=== PATIENT | male | born 1965 | race Caucasian/White ===

== ENCOUNTER 2022-11-11 23:47 | Emergency (ER) | payer OTHER ==
[~2022-11-11] VITALS: Ht 165.1 cm; Wt 98.4 kg
--- NOTE | 2022-11-12 00:10 | NUR ---
Patient ambulated to room #2 with family from home with c/o abd pain with nausea. patient is alert and oriented x4, no s/s of any distress noted, informed of plan of care, awaiting MD exam. side rails up will monitor. b/p is elevated will inform MD.
[2022-11-12] MEDS ORDERED: ONDANSETRON 4 MG/2 ML VIAL IV ONE (00:45)
[2022-11-12] MEDS ORDERED: MORPHINE SULFATE 2 MG/1 ML DISP.SYRIN IV ONE (00:45)
[2022-11-12] MEDS ORDERED: IV NORMAL SALINE 1000 ML BAG IV ONE (00:45)
--- NOTE | 2022-11-12 00:50 | NUR ---
Bedside EKG done for MD review, #20g established in left ac area, blood collected and sent to lab. MD informed of elevated b/p.
[2022-11-12 00:51] LABS: HEMATOCRIT 29.8 % (36.7-47.1); MEAN CORPUSCULAR HEMOGLOBIN 24.2 uug (23.8-33.4); MEAN CORPUSCULAR VOLUME 75.6 fL (73.0-96.2); PLATELET COUNT (AUTO) 288 K/uL (152-348)
[2022-11-12 00:52] LABS: *BILIRUBIN,URIN NEGATIVE (NEGATIVE); *BLOOD, URINE NEGATIVE (NEGATIVE); *CLARITY,URINE SLIGHTLY CLOUDY (CLEAR); *COLOR,URINE YELLOW (YELLOW); *KETONES,URINE TRACE (NEGATIVE); *UROBILINOGEN,URINE 0.2 E.U./dl (NORMAL); LEUKOCYTE ESTERASE ,URINE NEGATIVE (NEGATIVE); NITRITE, URINE NEGATIVE (NEGATIVE); PH,URINE 8.5 (5.0-8.0); UGLUCOSE NEGATIVE (NEGATIVE)
[2022-11-12] MEDS ORDERED: MORPHINE SULFATE 4 MG/1 ML DISP.SYRIN ONE (00:53)
[2022-11-12] MEDS ORDERED: ONDANSETRON 4 MG/2 ML VIAL ONE (00:53)
[2022-11-12] MEDS ORDERED: MAG HYDROX/AL HYDROX/SIMETH 30 ML LIQUID UDC PO ONE (01:00)
[2022-11-12] MEDS ORDERED: LIDOCAINE VISCUS 2% 15 ML UDC MM ONE (01:00)
[2022-11-12] MEDS ORDERED: LIDOCAINE VISCUS 2% 15 ML UDC ONE (01:02)
[2022-11-12] MEDS ORDERED: MAG HYDROX/AL HYDROX/SIMETH 30 ML LIQUID UDC ONE (01:02)
[2022-11-12 01:07] LABS: CREATININE 0.8 mg/dL (0.6-1.3); POTASSIUM 3.9 mmol/L (3.5-5.1)
--- NOTE | 2022-11-12 01:07 | NUR ---
patient medicated as per order, states pain is better s/p the morphine .IVF infusing well as per order. repositioned for comfort, family remains at bedside.
[2022-11-12 01:18] LABS: BILIRUBIN,TOTAL 0.9 mg/dL (0.2-1.0); TOTAL PROTEIN, SERUM 7.8 g/dL (6.4-8.2)
[2022-11-12 01:29] LABS: BACTERIA,URINE NONE SEEN /HPF (NONE SEEN); RBC,URINE NONE SEEN /HPF (0-3); SQUAMOUS EPITHELIAL CELL,UR FEW /HPF (NONE SEEN); WBC,URINE NONE SEEN /HPF (0-3)
[2022-11-12 01:34] LABS: URINE AMORPHOUS PHOSPHATES MANY /HPF
[2022-11-12 01:35] LABS: LIPASE 121 U/L (73-393)
[2022-11-12] MEDS ORDERED: IOHEXOL 300MG/ML 100 ML INFUS..BTL ONE (02:09)
[2022-11-12] MEDS ORDERED: SWABABLE VALVE TRANSFER SET EA MC ONE (02:09)
[2022-11-12] MEDS ORDERED: IV NORMAL SALINE 250 ML IV ONE (02:10)
--- NOTE | 2022-11-12 02:24 | NUR ---
Patient consented for CT at this time tech is here to transport, patient remains stable.
--- NOTE | 2022-11-12 03:39 | NUR ---
sitting up at bedside awaiting CT results, no c/o at this time. 152/80-92-20-97%, will continue to monitor.
[2022-11-12] MEDS ORDERED: KETOROLAC TROMETHAMINE 15 MG INJ IVP ONE (04:00)
[2022-11-12] MEDS ORDERED: IV NORMAL SALINE 500 ML BAG IV ONE (04:00)
[2022-11-12] MEDS ORDERED: KETOROLAC TROMETHAMINE 15 MG INJ ONE (04:07)
--- NOTE | 2022-11-12 05:19 | NUR ---
IVF complete, resting without c/o, given miley at this time.139/75-96-20-97% will continue to monitor.
--- NOTE | 2022-11-12 05:30 | NUR ---
Dr. Khalil speaking with Dr. Rodriguez for surgery consult.
--- NOTE | 2022-11-12 05:41 | NUR ---
Patient tolerated sandwhich well, no abd pain s/p eating. MD at bedside talking with patient, aware will be waiting in ER for surgeon this morning.
[2022-11-12] MEDS ORDERED: CEFTRIAXONE 1 G in IV DEXTROSE 5% 50 ML IV ONE (06:15)
[2022-11-12] MEDS ORDERED: METRONIDAZOLE 500 MG/NS 100 ML PIGGYBACK IV ONE (06:15)
[2022-11-12] MEDS ORDERED: CEFTRIAXONE /D5W 50ML IVPB **ER PYXIS IV ONE (07:02)
[2022-11-12] MEDS ORDERED: METRONIDAZOLE 500 MG/NS 100ML 100 ML IV ONE (07:03)
--- NOTE | 2022-11-12 08:38 | NUR ---
Patient does not wish to proceed with medical care recommended by Dr. Carlson. Patient given information related to possible complications, up to and including , which could occur as a result of leaving the hospital at this time. Patient verbalizes understanding of risks involved due to leaving against medical advice. Patient has signed AMA form.
== END 2022-11-12 09:39 | disposition left against medical advice (07) ==
LOC: ER 11-12 00:06
DX: K81.9 Cholecystitis, unspecified (principal); J98.11 Atelectasis; I10 Essential (primary) hypertension
CPT/HCPCS: 99285; 74177; 96365; 96375 ×2; 76705; 80053; 81001; 83690; 85025; 84484; 36415; 93005; 83605; J0696; J1885; J3490; J2405; Q9967; J2270; J7040 ×2

== ENCOUNTER 2022-12-08 22:57 | Emergency (ER) | payer OTHER ==
[~2022-12-08] VITALS: Ht 165.1 cm; Wt 98.9 kg
[2022-12-09] MEDS ORDERED: CARV3.122 PO (00:09)
[2022-12-09] MEDS ORDERED: HYDR-3980 PO (00:50)
[2022-12-09] MEDS ORDERED: HYDROMORPHONE 1 MG/1 ML DISP.SYRIN IM ONE (01:00)
[2022-12-09] MEDS ORDERED: KETOROLAC TROMETHAMINE 60 MG INJ IM ONE ×2 (01:00→01:03)
[2022-12-09] MEDS ORDERED: ONDANSETRON HCL 4 MG TABLET PO ONE (01:00)
[2022-12-09] MEDS ORDERED: OXYCODONE/APAP 5-325 MG TABLET PO ONE (01:00)
[2022-12-09] MEDS ORDERED: ONDANSETRON HCL 4 MG TABLET ONE (01:03)
[2022-12-09] MEDS ORDERED: HYDROMORPHONE 2 MG/1 ML DISP.SYRIN ONE (01:04)
[2022-12-09 02:44] VITALS: BP 145/85
--- NOTE | 2022-12-09 02:44 | NUR ---
Patient discharged to home in stable condition. Written and verbal after care instructions given. Instructed patient not to drive. Patient verbalizes understanding of instructions. Stressed follow up or return to ER for worsening s/s.
== END 2022-12-09 02:45 | disposition home or self-care (01) ==
LOC: ER 22:57
DX: R60.0 Localized edema (principal); Z96.641 Presence of right artificial hip joint
CPT/HCPCS: 99284; 93971; 96372 ×2; J1885; J1170; A4663; Q0162

== ENCOUNTER 2023-02-06 13:25 | Emergency (ER) | payer OTHER ==
[~2023-02-06] VITALS: Ht 165.1 cm; Wt 99.8 kg
[~2023-02-06 13:25] MED LIST: CARV3.122 PO; HYDR-3980 PO
[2023-02-06] MEDS ORDERED: MORPHINE SULFATE 4 MG/1 ML DISP.SYRIN IV ONE ×2 (14:15→16:15)
[2023-02-06 14:51] LABS: HEMATOCRIT 30.6 % (36.7-47.1); MEAN CORPUSCULAR HEMOGLOBIN 20.4 uug (23.8-33.4); MEAN CORPUSCULAR VOLUME 66.5 fL (73.0-96.2); PLATELET COUNT (AUTO) 323 K/uL (152-348)
[2023-02-06] MEDS ORDERED: MORPHINE SULFATE 4 MG/1 ML DISP.SYRIN ONE ×2 (14:57→16:02)
[2023-02-06 15:02] LABS: CREATININE 0.8 mg/dL (0.6-1.3); POTASSIUM 4.4 mmol/L (3.5-5.1)
[2023-02-06 15:08] LABS: BILIRUBIN,TOTAL 0.8 mg/dL (0.2-1.0); TOTAL PROTEIN, SERUM 8.1 g/dL (6.4-8.2)
--- NOTE | 2023-02-06 15:19 | NUR ---
Pt signed consent for IV contrasted Ct scan, placed in the chart.
[2023-02-06] MEDS ORDERED: IOHEXOL 350 100 ML INFUS..BTL ONE (15:51)
[2023-02-06] MEDS ORDERED: SWABABLE VALVE TRANSFER SET EA MC ONE (15:51)
[2023-02-06] MEDS ORDERED: IV NORMAL SALINE 250 ML IV ONE (15:51)
--- NOTE | 2023-02-06 16:29 | NUR ---
Removed HL on RAC, painful w/ flushing. Dr Sahu placed another line in the LAC.
--- NOTE | 2023-02-06 17:10 | NUR ---
LAC line removed, noted small infiltrate, DR caballero attempted to place another line, pt reused.
[2023-02-06] MEDS ORDERED: HYDROMORPHONE 1 MG/1 ML DISP.SYRIN IM ONE (17:30)
[2023-02-06] MEDS ORDERED: HYDROMORPHONE 1 MG/1 ML DISP.SYRIN ONE (17:31)
[2023-02-06] MEDS ORDERED: diphenhydrAMINE 25 MG CAP PO ONE ×2 (17:45→17:47)
[2023-02-06] MEDS ORDERED: DIPH-588 PO (17:47)
--- NOTE | 2023-02-06 17:51 | NUR ---
Patient does not wish to proceed with medical care recommended by Dr. Cruz Sahu ). Patient given information related to possible complications, up to and including , which could occur as a result of leaving the hospital at this time. Patient verbalizes understanding of risks involved due to leaving against medical advice. Patient has signed AMA form.
[2023-02-06 17:54] VITALS: BP 144/78
== END 2023-02-06 17:55 | disposition left against medical advice (07) ==
LOC: ER 13:25
DX: R10.9 Unspecified abdominal pain (principal); G89.18 Other acute postprocedural pain; M54.50 Low back pain, unspecified; Z90.49 Acquired absence of other specified parts of digestive tract; E66.9 Obesity, unspecified; Z68.36 Body mass index [BMI] 36.0-36.9, adult; Z96.649 Presence of unspecified artificial hip joint; D64.9 Anemia, unspecified; Z53.29 Procedure and treatment not carried out because of patient's decision for other reasons
CPT/HCPCS: 99285; 96374; 96375; 80053; 85025; 85610; 86850; 86900; 86901; 84484 ×2; 36415; 93005; 96376; Q0163; Q9967; J1170; J2270 ×2; A4663

== ENCOUNTER 2023-02-08 01:44 | Emergency (ER) | payer OTHER ==
[~2023-02-08] VITALS: Ht 162.6 cm; Wt 99.8 kg
[~2023-02-08 01:44] MED LIST changes: +DIPH-588 PO
--- NOTE | 2023-02-08 01:45 | NUR ---
Patient walked to ER with steady gait, accompanied by his caregiver c/o severe back pain. patient is s/p surgery for Cholecystectomy and hernia repair 6 days ago done at [facility]. Patient is a/ox4, NAD noted.
[2023-02-08] MEDS ORDERED: HYDROMORPHONE 1 MG/1 ML DISP.SYRIN IM ONE (02:15)
[2023-02-08] MEDS ORDERED: IV NORMAL SALINE 1000 ML BAG IV ONE (02:15)
[2023-02-08] MEDS ORDERED: HYDROMORPHONE 1 MG/1 ML DISP.SYRIN ONE (02:27)
[2023-02-08 02:57] LABS: HEMATOCRIT 29.8 % (36.7-47.1); MEAN CORPUSCULAR HEMOGLOBIN 20.8 uug (23.8-33.4); MEAN CORPUSCULAR VOLUME 65.7 fL (73.0-96.2); PLATELET COUNT (AUTO) 311 K/uL (152-348)
[2023-02-08 03:56] LABS: POTASSIUM 3.9 mmol/L (3.5-5.1)
[2023-02-08 03:57] LABS: CREATININE 0.8 mg/dL (0.6-1.3)
[2023-02-08 03:58] LABS: BILIRUBIN,DIRECT 0.1 mg/dL (0.0-0.2); BILIRUBIN,TOTAL 0.6 mg/dL (0.2-1.0)
[2023-02-08 03:59] LABS: TOTAL PROTEIN, SERUM 8.3 g/dL (6.4-8.2)
[2023-02-08] MEDS ORDERED: SWABABLE VALVE TRANSFER SET EA MC ONE (04:09)
[2023-02-08] MEDS ORDERED: IOHEXOL 350 100 ML INFUS..BTL ONE (04:09)
[2023-02-08] MEDS ORDERED: IV NORMAL SALINE 250 ML IV ONE (04:09)
--- NOTE | 2023-02-08 04:15 | NUR ---
Patient taken to CT by Naima Lopez. Patient in stable condition, NAD noted.
[2023-02-08] MEDS ORDERED: IOHEXOL 300MG/ML 100 ML INFUS..BTL ONE (04:43)
[2023-02-08] MEDS ORDERED: MORPHINE SULFATE 4 MG/1 ML DISP.SYRIN IV ONE (05:45)
[2023-02-08] MEDS ORDERED: MORPHINE SULFATE 4 MG/1 ML DISP.SYRIN ONE (05:48)
--- NOTE | 2023-02-08 05:50 | NUR ---
Patient back from CT
--- NOTE | 2023-02-08 06:08 | NUR ---
Urine collected and sent to lab
[2023-02-08 06:14] LABS: *BILIRUBIN,URIN NEGATIVE (NEGATIVE); *CLARITY,URINE CLEAR (CLEAR); *COLOR,URINE YELLOW (YELLOW); *KETONES,URINE NEGATIVE (NEGATIVE); *UROBILINOGEN,URINE 0.2 E.U./dl (NORMAL); LEUKOCYTE ESTERASE ,URINE NEGATIVE (NEGATIVE); NITRITE, URINE NEGATIVE (NEGATIVE); UGLUCOSE NEGATIVE (NEGATIVE)
[2023-02-08 06:15] LABS: *BLOOD, URINE NEGATIVE (NEGATIVE)
[2023-02-08] MEDS ORDERED: IV NS 1000 ML 1,000 ML IV ONE (06:30)
[2023-02-08] MEDS ORDERED: ATOR20TA PO (06:31)
--- NOTE | 2023-02-08 06:44 | NUR ---
endorsed to Roberto MOULTON
[2023-02-08] MEDS ORDERED: CYCL5TAB PO (08:17)
[2023-02-08] MEDS ORDERED: ACET-2605 PO (08:17)
[2023-02-08] MEDS ORDERED: POLY17PO4 PO (08:17)
[2023-02-08] MEDS ORDERED: DIAZEPAM 10 MG/2 ML DISP.SYRIN IV ONE (09:15)
[2023-02-08] MEDS ORDERED: DIAZEPAM 5 MG TABLET ONE (09:22)
--- NOTE | 2023-02-08 10:30 | NUR ---
PT WAS D/C'd TO HOME. D/C INSTRUCTIONS GIVEN TO THE PT BY DR GRANT.
[2023-02-08 10:31] VITALS: BP 134/69
== END 2023-02-08 10:32 | disposition home or self-care (01) ==
LOC: ER 01:48
DX: M54.9 Dorsalgia, unspecified (principal); K59.00 Constipation, unspecified; Z90.49 Acquired absence of other specified parts of digestive tract; J98.11 Atelectasis; M47.816 Spondylosis without myelopathy or radiculopathy, lumbar region; D64.9 Anemia, unspecified; I10 Essential (primary) hypertension; E78.00 Pure hypercholesterolemia, unspecified; K76.0 Fatty (change of) liver, not elsewhere classified; Z96.643 Presence of artificial hip joint, bilateral; M50.30 Other cervical disc degeneration, unspecified cervical region
CPT/HCPCS: 99285; 71275; 96374; 96375; 96361; 80076; 80048; 81003; 83880; 83690; 85025; 85730; 87040 ×2; 84484; 36415; 93005; 72125; 72128; 72131; 74177; 83605; Q9967 ×2; J1170; J2270; J7040 ×2; A4663

== ENCOUNTER 2024-07-22 23:20 | Emergency (ER) | payer OTHER ==
[~2024-07-22] VITALS: Ht 180.3 cm; Wt 76.7 kg
[~2024-07-22 23:20] MED LIST changes: +ACET-2605 PO; +ATOR20TA PO; +CYCL5TAB PO; -DIPH-588 PO; +POLY17PO4 PO
[2024-07-23] MEDS: HYDROCODONE/APAP 5-325MG TABLET PO ONE (02:07)
[2024-07-23] MEDS: IBUPROFEN 600 MG TABLET PO ONE (02:07)
[2024-07-23] MEDS ORDERED: IBUPROFEN 600 MG TABLET ONE (02:08)
[2024-07-23] MEDS ORDERED: HYDROCODONE/APAP 5-325MG TABLET ONE (02:09)
[2024-07-23 02:11] LABS: BASOPHILS # (AUTO) 0.1 K/UL (0.0-0.2); BASOPHILS % (AUTO) 0.6 % (0.0-2.0); EOSINOPHILS # (AUTO) 0.1 K/uL (0.0-0.7); EOSINOPHILS % (AUTO) 1.1 % (0.0-7.0); HEMOGLOBIN 10.5 g/dL (12.5-16.3); LYMPHOCYTES # (AUTO) 1.6 K/uL (0.8-4.8); LYMPHOCYTES % (AUTO) 18.1 % (20.5-51.5); MEAN CORPUSCULAR HGB CONC 31 g/dL (32.5-36.3); MEAN CORPUSCULAR VOLUME 67.9 fL (73.0-96.2); MONOCYTES # (AUTO) 0.8 K/uL (0.1-1.30); MONOCYTES % (AUTO) 9.8 % (0.0-11.0); NEUTROPHILS # (AUTO) 6.1 K/uL (1.8-8.9); NEUTROPHILS % (AUTO) 70.4 % (38.5-71.5); PLATELET COUNT (AUTO) 318 K/uL (152-348); WHITE BLOOD COUNT (AUTO) 8.6 K/uL (3.6-10.2)
[2024-07-23 02:20] LABS: DIFFERENTIAL COMMENT 1
[2024-07-23 02:28] LABS: CALCIUM 8.7 mg/dL (8.5-10.1); CARBON DIOXIDE 29 mmol/L (21-32); CHLORIDE 99 mmol/L (98-107); CREATININE 0.8 mg/dL (0.6-1.3); GLUCOSE 121 mg/dL (74-106); POTASSIUM 4.2 mmol/L (3.5-5.1); SODIUM SERUM 136 mmol/L (136-145); UREA NITROGEN, BLOOD 10 mg/dL (7-18)
[2024-07-23 02:37] LABS: ALANINE AMINOTRANSFERASE 16 U/L (16-63); ALBUMIN 3.2 g/dL (3.4-5.0); ALKALINE PHOSPHATASE 50 U/L (50-136); ASPARTATE AMINOTRANSFERASE 10 U/L (15-37); BILIRUBIN,DIRECT 0.1 mg/dL (0.0-0.2); BILIRUBIN,TOTAL 0.7 mg/dL (0.2-1.0); TOTAL PROTEIN, SERUM 7.9 g/dL (6.4-8.2)
[2024-07-23 02:48] LABS: BAND % (MANUAL) 1 % (0-10); BASOPHILS % (MANUAL) 7 % (0-2); EOSINOPHILS % (MANUAL) 3 % (0-8); LYMPHOCYTES % (MANUAL) 21 % (20-40); MONOCYTES % (MANUAL) 8 % (2-10); NEUTROPHILS % (MANUAL) 60 % (42-75)
[2024-07-23 02:49] LABS: ANISOCYTOSIS 2+; HYPOCHROMASIA 2+; PLATELET ESTIMATE ADEQUATE
[2024-07-23] MEDS ORDERED: IBUP-1490 PO (04:42)
[2024-07-23 05:37] VITALS: BP 138/88; TEMP 98.1; O2SAT 98
== END 2024-07-23 05:39 | disposition home or self-care (01) ==
LOC: ER 23:28
DX: M25.512 Pain in left shoulder (principal); Z90.49 Acquired absence of other specified parts of digestive tract; Z79.1 Long term (current) use of non-steroidal anti-inflammatories (NSAID); Z79.899 Other long term (current) drug therapy; Z60.2 Problems related to living alone
CPT/HCPCS: 36415; 70030-TC; 71045; 73030; 84484; 85025; 93005; A4606; A4663